=== PATIENT | female | born 1950 | race African-American/Black ===

== ENCOUNTER 2016-12-11 12:01 | Inpatient (IN) | payer OTHER ==
--- NOTE | ~2016-12-11 | DS ---
Discharge Summary [facility] [address] [place]. [address] NAME: MARIUM JIN : 54 STATUS : DIS IN PAT#: [id number] AGE: 66 ADM/REG DATE : 12/11/16 MR#: [id number] REPORT SERV DATE: 12/18/16 DICTATED BY: CHARLINE BAUTISTA DATE: 12/14/16 REPORT STATUS : Draft TRANSCRIBED BY: MODL DATE: 12/14/16 ADMISSION DATE: 12/11/2016 DISCHARGE DATE: 12/14/2016 PRINCIPAL DIAGNOSIS: Acute systolic congestive heart failure with an ejection fraction 20%. SECONDARY DIAGNOSES: 1. Malignant hypertension. 2. Hyponatremia. 3. Tobacco abuse. HISTORY OF PRESENT ILLNESS: Please see Dr. Padilla's dictation on 12/11/2016. HOSPITAL COURSE: Admitted with acute shortness of breath with a malignant hypertension, blood pressure in the 200s, pulmonary edema resolve rapidly upon improvement of the blood pressure and a single dose of a diuretic. The patient's blood pressure was controlled. Echocardiogram however revealed ejection fraction of 20%. Seen by Cardiology. She underwent a cardiac catheterization on 12/14/2016 which showed clean coronary arteries; however, evidence of a long-standing hypertension with thickened muscular blood vessels. Her blood pressure was satisfactory on carvedilol, Lotensin. She received aspirin and Lipitor. Nitroglycerin was changed over to spironolactone, and she could follow up with Dr. Cobos in a month and [facility] in a week for ongoing blood pressure management. She is encouraged not to smoke. ROSIE/MISTY Charline Bautista M.D. / [id number] CC: Giulia Corrales MD [facility]
--- NOTE | ~2016-12-11 | HP ---
History And Physical [id number] [place]. [address] NAME: MARIUM JIN : 54 STATUS : ADM IN [facility]#: [id number] AGE: 66 ADM/REG DATE : 12/11/16 MR#: [id number] REPORT SERV DATE: 12/11/16 DICTATED BY: DELROY LOPEZ DATE: 12/11/16 REPORT STATUS : Draft TRANSCRIBED BY: MODMadison DATE: 12/11/16 DATE OF ADMISSION: 12/11/2016 HISTORY OF PRESENT ILLNESS: The patient is a 66-year-old female with a history of hypertension, right breast cancer, status post right mastectomy with subsequent reconstructive surgery, who presented to the emergency room with a complaint of shortness of breath. The patient states that her symptoms started about two weeks ago and has been progressing. She states that upon awakening this morning, she was severely short of breath prompting her presentation to the emergency room. At the time of presentation to the emergency room, preliminary workup noted blood pressure of 192/98, and her labs noted a BNP of greater than 1100. The patient was, therefore, admitted in the hospitalist service for further management. At the time of my evaluation, the patient corroborated the above story. She states that her symptoms started about two weeks ago. She reported a two-pillow orthopnea and paroxysmal nocturnal dyspnea. She denies, however, any chest pain, lightheadedness, dizziness, or palpitations. She denies any nausea or any vomiting. She denies any fevers, chills, or any sick contacts. She denies any lower extremity edema. She reports that she currently takes no medication, and she did not take anything to alleviate her symptoms. REVIEW OF SYSTEMS: A 14-point review of system was performed. All systems were negative except as noted in the HPI. PAST MEDICAL HISTORY: 1. Right breast cancer. 2. Hypertension. PAST SURGICAL HISTORY: Reconstructive right breast surgery. FAMILY HISTORY: Positive for hypertension. She reports a significant family history of cancer stating that mother of uterine cancer at age 48. Her brother of throat cancer. She has two sisters with breast cancer. SOCIAL HISTORY: The patient reports a 49-pack-yea tobacco use. She reports positive alcohol use stating that she drinks about four bottles of beer per week. She denies, however, any illicit drug use. ALLERGIES: THE PATIENT REPORTS NO KNOWN DRUG ALLERGIES. PHYSICAL EXAMINATION: VITAL SIGNS: On presentation, blood pressure 192/98 with a pulse of 119, respiration 18, O2 saturation 95% on room air, temperature 36.5 degree Celsius, 97.8 degrees Fahrenheit. GENERAL: The patient is lying in bed, appears stated age, in no acute distress. Speaking in full sentences. HEENT: Normocephalic, atraumatic. Extraocular motors intact. Moist oral mucosa. Pupils are round and reactive to light and accommodation. Anicteric sclerae. No conjunctival History And Physical [address] [place]. [address] NAME: MARIUM JIN : 54 STATUS : ADM IN [facility]#: [id number] AGE: 66 ADM/REG DATE : 12/11/16 MR#: [id number] REPORT SERV DATE: 12/11/16 DICTATED BY: DELROY LOPEZ DATE: 12/11/16 REPORT STATUS : Draft TRANSCRIBED BY: MISTY DATE: 12/11/16 pallor. No conjunctival injection noted. NECK: Trachea midline and symmetric. No JVD noted. No thyromegaly present. No lymphadenopathy noted. CHEST: Nontender to palpation. No scars appreciated CARDIOVASCULAR: Tachycardic. Regular rhythm. I do not appreciate any murmurs, rubs, or gallops. LUNGS: Clear to auscultation bilaterally. No added breath sounds. No wheezing, no rhonchi, and no rales. ABDOMEN: Soft, flat. Positive bowel sounds. Nontender. Nondistended. No organomegaly noted. EXTREMITIES: No cyanosis, no clubbing, no edema. NEUROLOGIC: Alert and oriented x3. No focal deficits appreciated. LABORATORY DATA: WBC 5.1, hemoglobin 13.1, hematocrit 38.3, with an MCV of 96, platelets 254. Sodium 130, potassium 4.2, chloride 92, bicarb 25, BUN 5, creatinine 0.68, and glucose 78. BNP 1197.3. IMAGING: Portable chest x-ray, impression: No acute cardiopulmonary process is radiographically evident. ASSESSMENT AND PLAN: 1. Heart failure, new onset. The patient with elevated BNP. Plan: We will start IV diuresis x1 and reassess in the morning. We will order a transthoracic echo. 2. Hypertensive emergency. Blood pressure on presentation 192/98 in the setting of new onset heart failure. Plan: We will start the patient on lisinopril 10 mg p.o. daily and Coreg 12.5 mg b.i.d. We will reassess blood pressure in the morning. 3. Hyponatremia. The patient is currently asymptomatic, etiology unclear. However, given her significant smoking history and given her significant family history concerning for BRCA1/2 mutation, her risk of malignancy is high. Per guidelines, we will obtain low- dose CT scan of the chest to evaluate for a malignant process. 4. Tobacco abuse. Reports [id number] smoking history. Management as #3 above. 5. History of breast cancer. As stated above, the patient has a significant family history concerning for BRCA1/2 mutation. We will check the patient for BRCA1/2 mutation. If that study comes back positive, we will screen the patient for ovarian cancer with a pelvic ultrasound, and we will obtain CA-125 per recommended guidelines. 6. Tachycardic, etiology unclear. However, in the setting of new onset heart failure, unclear EF at this point, we will hold off fluid. We will start the patient on beta julieta and lisinopril, which is mainly for blood pressure control. 7. Code status. The patient will remain full code at this time. 8. Deep venous thrombosis prophylaxis will be with heparin subcu. MALIKA/MISTY Delroy Lopez MD History And Physical [address] [address] NAME: MARIUM JIN : 54 STATUS : ADM IN PAT#: [id number] AGE: 66 ADM/REG DATE : 12/11/16 MR#: [id number] REPORT SERV DATE: 12/11/16 DICTATED BY: DELROY LOPEZ DATE: 12/11/16 REPORT STATUS : Draft TRANSCRIBED BY: MISTY DATE: 12/11/16 / [id number] CC: Giulia Corrales MD
--- NOTE | ~2016-12-11 | CN ---
Consultation Report [facility] [address] [place]. [address] NAME: MARIUM AKINS : 54 STATUS : ADM IN PAT#: [id number] AGE: 66 ADM/REG DATE : 12/11/16 MR#: [id number] REPORT SERV DATE: 12/13/16 DICTATED BY: AXEL HALL DATE: 12/13/16 REPORT STATUS : Draft TRANSCRIBED BY: MODMadison DATE: 12/13/16 DATE OF CONSULTATION: 12/13/2016 REASON FOR CONSULTATION: New-onset heart failure. HISTORY OF PRESENT ILLNESS: Ms. Akins is a pleasant 66-year-old female with a history of right-sided breast cancer status post mastectomy, active tobacco smoking, hypertension, who presents to [facility] with symptoms of progressive dyspnea over the past two-three weeks. She states that she had been in her usual state of health and actively working cleaning homes. This is the case up until about two-three weeks ago at which point in time she noticed that she had been unable to do her usual activities without significant shortness of breath. Over the past two weeks, this had progressed to a severe extent, prompting her to present to the hospital two days ago. She otherwise denies having any chest pains, pressures, palpitations, dizziness, or lightheadedness. She is still smoking. ALLERGIES: NONE. FAMILY HISTORY: Noncontributory for heart disease. SOCIAL HISTORY: The patient lives at home with her son. She is fully independent under normal circumstances. She is an active tobacco smoker, denies drinking alcohol or doing drugs. HOME MEDICATIONS: P.r.n. anti-allergy medicine (nonspecified). REVIEW OF SYSTEMS: As above, all other systems otherwise are negative. PHYSICAL EXAMINATION: VITAL SIGNS: Blood pressure 134/74, pulse 92, temperature 97.8. GENERAL: Well developed, well nourished, no acute distress. NEURO: Awake, alert and oriented x3; no focal deficits, appropriate mood. HEAD AND NECK: Normocephalic atraumatic. Moist mucous membranes. Positive JVP to about 10 12 cm of water with a positive HJR. LUNGS: Clear to auscultation bilaterally, no wheezes, rales or rhonchi. CV: Regular rhythm, normal S1/S2, no murmurs, rubs or gallops. ABD: Soft, non-tender, non-distended, no rebound or guarding. EXTREMITIES: Warm, 1+ pulses, trace edema in the lower extremities bilaterally. SKIN: Warm, dry and intact; no rash. PERTINENT TEST FINDINGS: BNP 1200, troponin 0.04, TSH 3.6, potassium 3.2, sodium 127, creatinine 0.9, GFR 78. White blood cell count 5.2, hemoglobin 13.7, INR 1, platelets 243. EKG on admission with sinus tachycardia, normal mean QRS axis, left ventricular hypertrophy. Echocardiogram with severely decreased LV systolic function with an estimated ejection fraction of about 25%, normal RV function, mild mitral regurgitation and aortic Consultation Report [place] [id number] [facility] [place]. [address] NAME: MARIUM AKINS : 54 STATUS : ADM IN [facility]#: [id number] AGE: 66 ADM/REG DATE : 12/11/16 MR#: [id number] REPORT SERV DATE: 12/13/16 DICTATED BY: AXEL HALL DATE: 12/13/16 REPORT STATUS : Draft TRANSCRIBED BY: MISTY DATE: 12/13/16 regurgitation. IMPRESSION AND PLAN: Ms. Akins is a pleasant 66-year-old female with a history of right breast cancer status post mastectomy, hypertension, and tobacco smoking, who presents with progressive dyspnea in the setting of new-onset cardiomyopathy. Of note, she has evidence of coronary artery disease in her left circumflex and right coronary arteries on her CT scan. Accordingly, I have the following recommendations by problem below: 1. New onset cardiomyopathy-start CHF regimen. Salt and fluid restriction. Strict I's and O's. Diuresis. Up titrate beta-julieta as tolerated and addition of MARÍA- inhibitor/Aldactone. N.p.o. after midnight for coronary angiography with possible PCI tomorrow with Dr. Timmons at 10:30 a.m. Risks and benefits of this procedure have been discussed at length and the patient was amenable with proceeding. 2. Coronary artery disease-new diagnosis based on CT scan this admission. Start aspirin and Lipitor. Otherwise, workup with coronary angiography as above. 3. Hypertension-as per #1. 4. Hyperlipidemia, Lipitor as written. 5. Tobacco smoking-cessation counseling. ANDRE/MISTY Axel Hall MD / [id number] CC: Bertrand Bahena M.D. NO PCP
[2016-12-11 11:16] LABS: BASOPHILS 0.4 %; BASOPHILS ABSOLUTE 0.02 10/3/uL (0.0-0.16); EOSINOPHILS 0.2 %; EOSINOPHILS ABSOLUTE 0.01 10/3/uL (0.0-0.53); ER CBC TAT 0 Hrs 05 Mins; HEMATOCRIT 38.3 % (36.0-48.0); HEMOGLOBIN 13.1 g/dL (12.0-16.0); IMMATURE GRANULOCYTES 0.8 %; IMMATURE GRANULOCYTES ABSOLUTE 0.04 10/3/uL (0.0-0.11); LYMPHOCYTES 52.2 %; LYMPHOCYTES ABSOLUTE 2.64 10/3/uL (0.67-4.30); MEAN CORPUS HGB CONC 34.2 g/dL (32.0-36.0); MEAN CORPUSCULAR HEMOGLOB 32.8 pg (26.0-34.0); MONOCYTES 13.6 %; MONOCYTES ABSOLUTE 0.69 10/3/uL (0.21-1.20); NEUTROPHILS 32.8 %; NEUTROPHILS ABSOLUTE 1.66 10/3/uL (2.02-8.40); PLATELET COUNT 254 10/3/uL (150-400); RED CELL COUNT 3.99 10/6/uL (4.0-5.6); WHITE BLOOD CELLS 5.1 10/3/uL (4.5-10.5)
[2016-12-11 11:18] LABS: MANUAL DIFF NO %
[2016-12-11 11:23] LABS: PARTIAL THROMBO TIME 32.5 SEC (22.5-37.2); PROTIME (NOT ORD) 13.5 SEC (12.0-14.5)
[2016-12-11 11:35] LABS: A/G RATIO 0.9 (0.7-1.9); ALBUMIN 3.8 G/DL (3.5-5.0); ALKALINE PHOSPHATASE 111 U/L (45-117); BUN (BLOOD UREA NITROGEN) 5 MG/DL (6-23); CALCIUM, SERUM 8.7 MG/DL (8.5-10.4); CHLORIDE, SERUM 92 MMOL/L (96-112); CO2 (CARBON DIOXIDE) 25 MMOL/L (24-34); CREATININE 0.68 MG/DL (0.55-1.02); GFR AFRICAN AMERICAN 107 ML/MIN (>=60); GFR NON AFRICAN AMERICAN 92 ML/MIN (>=60); GLOBULIN 4.1 G/DL (2.5-4.1); GLUCOSE, SERUM 78 MG/DL (60-99); POTASSIUM, SERUM 4.2 MMOL/L (3.5-5.3); SGOT(AST) 28 U/L (5-40); SGPT(ALT) 17 U/L (5-65); SODIUM, SERUM 130 MMOL/L (135-148); TOTAL BILIRUBIN 0.9 MG/DL (0-1.2); TOTAL PROTEIN 7.9 G/DL (6.0-8.5); TROPONIN I 0.04 NG/ML (<0.05)
[2016-12-11 11:47] LABS: B NATRIURETIC PEPTIDE (BNP) 1197.3 PG/ML (< 100.0)
[2016-12-11] MEDS ORDERED: ALLERGY MED OTC PO (13:03)
[2016-12-11 22:18] LABS: GLYCOHEMOGLOBIN (HbA1c) 4.5 % (4.7-6.1)
[2016-12-12 05:52] LABS: A/G RATIO 0.8 (0.7-1.9); ALBUMIN 3.3 G/DL (3.5-5.0); ALKALINE PHOSPHATASE 104 U/L (45-117); BASOPHILS 0.2 %; BASOPHILS ABSOLUTE 0.01 10/3/uL (0.0-0.16); CALCIUM, SERUM 8.5 MG/DL (8.5-10.4); CHLORIDE, SERUM 91 MMOL/L (96-112); CO2 (CARBON DIOXIDE) 24 MMOL/L (24-34); CREATININE 0.73 MG/DL (0.55-1.02); EOSINOPHILS 0.2 %; EOSINOPHILS ABSOLUTE 0.01 10/3/uL (0.0-0.53); GFR AFRICAN AMERICAN 101 ML/MIN (>=60); GFR NON AFRICAN AMERICAN 87 ML/MIN (>=60); GLOBULIN 4.3 G/DL (2.5-4.1); GLUCOSE, SERUM 84 MG/DL (60-99); HEMATOCRIT 38.4 % (36.0-48.0); HEMOGLOBIN 13.7 g/dL (12.0-16.0); IMMATURE GRANULOCYTES 0.4 %; IMMATURE GRANULOCYTES ABSOLUTE 0.02 10/3/uL (0.0-0.11); LYMPHOCYTES 61.7 %; LYMPHOCYTES ABSOLUTE 3.22 10/3/uL (0.67-4.30); MEAN CORPUS HGB CONC 35.7 g/dL (32.0-36.0); MEAN CORPUSCULAR HEMOGLOB 32.9 pg (26.0-34.0); MEAN PLATELET VOLUME 9.1 fL (9.2-13.0); MONOCYTES 14.4 %; MONOCYTES ABSOLUTE 0.75 10/3/uL (0.21-1.20); NEUTROPHILS 23.1 %; NEUTROPHILS ABSOLUTE 1.21 10/3/uL (2.02-8.40); NUCLEATED RED BLOOD CELLS 2.3 /100WBC (0-0); PLATELET COUNT 243 10/3/uL (150-400); POTASSIUM, SERUM 3.6 MMOL/L (3.5-5.3); RBC DISTRIBUTION WIDTH 12.3 % (12.0-16.0); RED CELL COUNT 4.16 10/6/uL (4.0-5.6); SGOT(AST) 36 U/L (5-40); SGPT(ALT) 23 U/L (5-65); SODIUM, SERUM 131 MMOL/L (135-148); TOTAL BILIRUBIN 0.7 MG/DL (0-1.2); TOTAL PROTEIN 7.6 G/DL (6.0-8.5); WHITE BLOOD CELLS 5.2 10/3/uL (4.5-10.5)
[2016-12-12 05:53] LABS: BUN (BLOOD UREA NITROGEN) 9 MG/DL (6-23)
[2016-12-12 05:57] LABS: MANUAL DIFF NO %; MEAN CORPUSCULAR VOLUME 92.3 fL (80-100)
[2016-12-13 06:21] LABS: CALCIUM, SERUM 8.4 MG/DL (8.5-10.4); CHLORIDE, SERUM 92 MMOL/L (96-112); CHOL/HDL RATIO(NOT ORDER) 3.4 (0-5); CHOLESTEROL 157 MG/DL (< 200); CO2 (CARBON DIOXIDE) 24 MMOL/L (24-34); GFR AFRICAN AMERICAN 78 ML/MIN (>=60); GFR NON AFRICAN AMERICAN 68 ML/MIN (>=60); GLUCOSE, SERUM 95 MG/DL (60-99); HDL CHOLESTEROL 46 MG/DL (> 49); LDL CHOLESTEROL 86 MG/DL (< 130); NON-HDL CHOLESTEROL 111 MG/DL (< 160); POTASSIUM, SERUM 3.2 MMOL/L (3.5-5.3); SODIUM, SERUM 127 MMOL/L (135-148); TRIGLYCERIDE 125 MG/DL (< 150)
[2016-12-13 06:23] LABS: BUN (BLOOD UREA NITROGEN) 15 MG/DL (6-23)
[2016-12-13 17:22] LABS: SODIUM, URINE 12 MEQ/L
[2016-12-13 17:42] LABS: OSMOLALITY, URINE 374 MOSM/KG (50-1200)
[2016-12-14 06:52] LABS: PROTIME (NOT ORD) 12.8 SEC (12.0-14.5)
[2016-12-14 06:54] LABS: HEMATOCRIT 35.9 % (36.0-48.0); HEMOGLOBIN 12.6 g/dL (12.0-16.0); MEAN CORPUS HGB CONC 35.1 g/dL (32.0-36.0); MEAN PLATELET VOLUME 9.3 fL (9.2-13.0); PLATELET COUNT 242 10/3/uL (150-400); RBC DISTRIBUTION WIDTH 12.2 % (12.0-16.0); RED CELL COUNT 3.82 10/6/uL (4.0-5.6); WHITE BLOOD CELLS 5.1 10/3/uL (4.5-10.5)
[2016-12-14 06:55] LABS: MANUAL DIFF YES %
[2016-12-14 07:07] LABS: BUN (BLOOD UREA NITROGEN) 15 MG/DL (6-23); CALCIUM, SERUM 8.4 MG/DL (8.5-10.4); CHLORIDE, SERUM 90 MMOL/L (96-112); CHOLESTEROL 175 MG/DL (< 200); CO2 (CARBON DIOXIDE) 24 MMOL/L (24-34); CREATININE 0.96 MG/DL (0.55-1.02); GFR AFRICAN AMERICAN 72 ML/MIN (>=60); GFR NON AFRICAN AMERICAN 63 ML/MIN (>=60); GLUCOSE, SERUM 88 MG/DL (60-99); HDL CHOLESTEROL 44 MG/DL (> 49); LDL CHOLESTEROL 92 MG/DL (< 130); NON-HDL CHOLESTEROL 131 MG/DL (< 160); POTASSIUM, SERUM 3.9 MMOL/L (3.5-5.3); SODIUM, SERUM 128 MMOL/L (135-148); TRIGLYCERIDE 199 MG/DL (< 150)
[2016-12-14 07:24] LABS: EOSINOPHILS 1 %; EOSINOPHILS ABSOLUTE (CALC) 0.05 10/3/uL (0.0-0.53); LYMPHOCYTES 70 %; LYMPHOCYTES ABSOLUTE (CALC) 3.57 10/3/uL (0.67-4.30); MONOCYTES 9 %; MONOCYTES ABSOLUTE (CALC) 0.46 10/3/uL (0.21-1.20); NEUTROPHILS ABSOLUTE (CALC) 1.02 10/3/uL (2.02-8.40); PLATELET ESTIMATE ADQ (ADEQUATE); RBC MORPHOLOGY NORM (NORMAL); SEGMENTED NEUTROPHIL (0) 20 %; TOTAL NUCLEATED CELLS 100
[2016-12-14] MEDS ORDERED: LIPITOR40 PO (18:27)
[2016-12-14] MEDS ORDERED: ASAB PO (18:27)
[2016-12-14] MEDS ORDERED: SPIRO25 PO (18:28)
[2016-12-14] MEDS ORDERED: COREG12 PO (18:28)
[2016-12-14] MEDS ORDERED: LOTE10 PO (18:29)
[2016-12-14] MEDS ORDERED: L20 PO (18:30)
== END 2016-12-14 20:04 | disposition home or self-care (01) | DRG 286 ==
LOC: ER 12:01 → 1SO 12:51 → SDC/OF 12-13 09:37 → 1SO 12-13 09:38
PROVIDERS: Emergency Medicine; Hospitalist; Internal Medicine; Student in an Organized Health Care Education/Training Program
PROC: B2111ZZ Fluoroscopy of Multiple Coronary Arteries using Low Osmolar Contrast (ICD-10-PCS; principal; 2016-12-14)
PROC: B2151ZZ Fluoroscopy of Left Heart using Low Osmolar Contrast (ICD-10-PCS; 2016-12-14)
PROC: 4A023N7 Measurement of Cardiac Sampling and Pressure, Left Heart, Percutaneous Approach (ICD-10-PCS; 2016-12-14)
DX: I16.0 Hypertensive urgency (principal); I50.21 Acute systolic (congestive) heart failure; I42.8 Other cardiomyopathies; E87.1 Hypo-osmolality and hyponatremia; I11.0 Hypertensive heart disease with heart failure; I25.10 Atherosclerotic heart disease of native coronary artery without angina pectoris; E78.5 Hyperlipidemia, unspecified; F17.210 Nicotine dependence, cigarettes, uncomplicated; Z79.82 Long term (current) use of aspirin; Z79.899 Other long term (current) drug therapy; Z85.3 Personal history of malignant neoplasm of breast; Z90.11 Acquired absence of right breast and nipple
CPT/HCPCS: 71010; 71250; 80048; 80053; 80061; 83036; 83735; 83880; 83935; 84300; 84439; 84443; 84484; 85025; 85610; 85730; 87040; 93005; 93458; 99152; 99153; 99285; A9270-GY; C1769; C1887; C1894; C8929; J0360; J1940; J2250; J3010; Q9957; Q9967